=== PATIENT | male | born 1960 | race Caucasian/White ===

== ENCOUNTER 2018-09-18 10:22 | Day surgery (SDC) | payer OTHER, SELFPAY ==
--- NOTE | 2018-09-18 | PATH_ITS ---
[facility] Accession Number: [id number] . 01 Material submitted: . POLYP @ ANAL VERGE . 02 Diagnosis: Polyp at Anal Verge, Biopsy: Hyperplastic polyp. [facility]/09/21/2018 . 02 Electronically signed: . Felipe Fitzpatrick MD, PhD, Pathologist NPI- [id number] . 01 Gross description: . POLYP @ ANAL VERGE: Received in formalin are multiple fragment(s) of mitchell, soft tissue measuring 0.7 x 0.4 x 0.3 cm in aggregate submitted entirely in 1 cassette(s) /CKI /CKI . 02 Pathologist provided ICD-10: K62.1 . 02 CPT . 082633 Specimen Comment: A duplicate report has been generated due to demographic updates. Performed at: 01 [facility] [address] [place] [address], [place], [place] [id number] MD Floyd Alas MD Phone: [phone] [facility]formed at: [facility] [address] [place], [place] [id number] MD Danna Laura MD Phone: [phone]
[2018-09-18 10:49] VITALS: BP 151/108; PULSE 65; RESP 16; TEMP 36.8; O2SAT 98; BMI 35.6
[2018-09-18] MEDS: SODIUM CHLORIDE 0.9% 1,000 ML 200 ML IV (11:10)
[2018-09-18] MEDS: MIDAZOLAM 5 MG/5 ML VIAL IV (11:20)
[2018-09-18] MEDS: fentaNYL 250 MCG/5 ML INJ IV (11:20)
--- NOTE | 2018-09-18 11:41 | PM.HP.1 ---
History of Present Illness Date Patient Seen: 09/18/18 Time Patient Seen: 11:34 Chief complaint: flex sig possible hem banding [id number] Narrative: Patient is a gentleman here for flex sig to evaluate colonic leakage. He states that the Kugel exercises I recommended have helped tremendously probably 95% improvement he said. Patient History Medical History PTSD (post-traumatic stress disorder) (Chronic) Surgical History H/O colonoscopy (Resolved ~2011) History of appendectomy (Resolved ~1977) History of appendectomy (Resolved) Family & Social History Family History: Reviewed 09/18/18 by Gunnar Velásquez MD Social History: household members spouse Tobacco & Substance use: Smoking Status Current every day smoker alcohol intake never Meds Home Medications Medication Instructions Recorded Confirmed Type alprazolam 1 mg tablet 1 mg PO .twice per week tab 07/29/18 09/18/18 History aspirin 81 mg chewable tablet 81 mg PO DAILY 07/29/18 09/18/18 History atorvastatin PO DAILY 07/29/18 07/29/18 History hydrocodone 7.5 mg-acetaminophen 1 tab PO Q4H PRN 07/29/18 07/29/18 History 325 mg tablet hydrocortisone acetate 1 % rectal % TOP 07/29/18 07/29/18 History cream lactobacillus combination no.8 PO 07/29/18 07/29/18 History metoprolol tartrate PO 07/29/18 07/29/18 History multivitamin tablet 1 tab PO DAILY 07/29/18 07/29/18 History omeprazole PO 07/29/18 07/29/18 History oxycodone-acetaminophen 5 mg-325 1 tab PO Q4-6H PRN 07/29/18 07/29/18 History mg tablet Allergies Allergy/AdvReac Type Severity Reaction Status Date / Time No Known Drug Allergies Allergy Unverified 07/29/18 11:01 Review of Systems Review of Systems All systems reviewed & are unremarkable except as noted in HPI and below Exam Vital Signs (past 8 hours): - 09/18/18 10:49 Temperature 98.2 F Pulse Rate 65 Respiratory Rate 16 Blood Pressure 151/108 H Pulse Oximetry 98 Oxygen Delivery Method Room Air Narrative Exam Narrative: Co Operative no apparent distress. Lungs are clear to auscultation no rales or rhonchi heart regular rate and rhythm no murmur gallop. Abdomen is protuberant soft nontender without mass. Assessment & Plan Plan: Assessment/Plan Narrative: Will proceed to flex sig and possible banding. I have discussed procedures and rationale with the. All questions were answered. Risks of bleeding infection discussed.
--- NOTE | 2018-09-18 11:43 | PM.PREOP ---
Pre-operative Note Interval Note Pre-op Check: Yes History & Physical exam performed today by Physician Changes: No ASA Class (for procedural sedation): II
--- NOTE | 2018-09-18 11:59 | PM.OP.ENDO ---
Operative Date/Time/Diagnoses Date of procedure: 09/18/18 Time of procedure: 11:59 Pre-op diagnosis: Fecal incontinence Post-op diagnosis: same (Diverticulosis sigmoid colon. Small hemorrhoids right at the anal verge. Not amenable to banding.) Procedure & Clinicians Study performed: Flexible sigmoidoscopy with cold biopsy Same procedure as scheduled: Yes Indications: Evaluation of causes of incontinence Surgeon: Gunnar Velásquez Procedure Notes SCOAP/Timeout: Performed Procedure in detail: The patient is placed in left lateral decubitus position underwent IV sedation directed by the surgeon consisting of fentanyl Versed. Digital exam was unremarkable. Marked improvement in his sphincter tone. The scope was inserted advanced through the rectum into the sigmoid. I reached formed stool at 40 cm and had to stop. The scope was gradually brought out. I noted 1 diverticuli and I on retroflex and there were 2 small polyp like lesions near the anal verge which I biopsied and removed. I really did not see anything but some small hemorrhoids right at the anal verge which would not be amenable to banding. As patient has markedly improved symptom- tom I did not proceed with any banding procedure. Findings: diverticulosis and internal hemorrhoids (Very small) Specimen(s): other (Two polyps at anal verge) Complications: none Follow up: as needed Disposition: PACU
[2018-09-18 12:08] VITALS: BP 163/95; PULSE 61; RESP 16; TEMP 36.6; O2SAT 93
[2018-09-18 12:12] VITALS: BP 151/88; PULSE 77; TEMP 36.4; O2SAT 95
== END 2018-09-18 12:24 | disposition home or self-care (01) ==
PROVIDERS: Family Provider Family Medicine; PCP Family Medicine; Visit Provider Specialist
PROC: 0DJD8ZZ Inspection of Lower Intestinal Tract, Via Natural or Artificial Opening Endoscopic (ICD-10-PCS; CPT 45378; principal; 2018-09-18 11:45)
DX: R15.9 Full incontinence of feces (principal); K57.30 Diverticulosis of large intestine without perforation or abscess without bleeding; K64.8 Other hemorrhoids; K62.1 Rectal polyp; F17.210 Nicotine dependence, cigarettes, uncomplicated; F43.10 Post-traumatic stress disorder, unspecified
CPT/HCPCS: 45331; 99152; J2250; J3010

== ENCOUNTER → 2022-09-02 10:55 | Outpatient (CLI) | payer OTHER, SELFPAY ==
[2022-09-02 14:33] LABS: COVID19 -Nasal RAPID Negative (Negative)
== END ==
PROVIDERS: Family Provider Family Medicine; PCP Family Medicine; Visit Provider Surgery
DX: Z20.822 Contact with and (suspected) exposure to COVID-19 (principal); Z01.812 Encounter for preprocedural laboratory examination
CPT/HCPCS: 87635; C9803

== ENCOUNTER 2022-09-03 09:40 | Day surgery (SDC) | payer OTHER, SELFPAY ==
[2022-09-03] MEDS: SODIUM CHLORIDE 0.9% 1,000 ML 150 ML IV (09:53)
[2022-09-03 10:05] VITALS: BP 151/97; PULSE 65; RESP 16; TEMP 36.3; O2SAT 98
--- NOTE | 2022-09-03 10:55 | P.HP_ITS ---
History of Present Illness History of Present Illness Date Patient Seen: 09/03/22 Time Patient Seen: 10:55 Chief complaint: SDC Narrative: The patient presents for colorectal screening he had a flexible sigmoidoscopy with polypectomy 2017. No personal or family history of colon cancer. On further history denies any recent gastrointestinal symptoms. No nausea, vomiting, abdominal pain, loss of appetite, unexplained weight loss, change in bowel habits. History of uncomplicated diverticulitis. Patient History Medical History PTSD (post-traumatic stress disorder) Surgical History H/O colonoscopy (~2011) History of appendectomy (~1977) History of appendectomy Family & Social History Family History Father Diabetes mellitus Mother Lung cancer Social History: household members spouse Tobacco & Substance use: Smoking Status Former smoker alcohol intake never Substance Use Type does not use Meds Home Medications and Allergies Home Medications Medication Instructions Recorded Confirmed Type alprazolam 1 mg tablet (Xanax) 1 mg PO .twice per week 07/29/18 09/18/18 History aspirin 81 mg chewable tablet 81 mg PO DAILY 07/29/18 09/18/18 History atorvastatin PO DAILY 07/29/18 07/29/18 History hydrocodone 7.5 mg-acetaminophen 1 tab PO Q4H PRN pain 07/29/18 07/29/18 History 325 mg tablet hydrocortisone acetate 1 % rectal % topical 07/29/18 07/29/18 History cream lactobacillus combination no.8 PO 07/29/18 07/29/18 History [Adult Probiotic] metoprolol tartrate PO 07/29/18 07/29/18 History multivitamin 1 tab PO DAILY 07/29/18 07/29/18 History omeprazole [Prilosec] PO 07/29/18 07/29/18 History oxycodone-acetaminophen 5 mg-325 1 tab PO Q4-6H PRN Pain (Scale 07/29/18 07/29/18 History mg tablet Score 1-3) sodium,potassium,mag sulfates 17.5 See Rx Instructions PO .COMPLEX 07/17/22 Rx gram-3.13 gram-1.6 gram oral soln #354 mL (Suprep Bowel Prep Kit) Allergies Allergy/AdvReac Type Severity Reaction Status Date / Time adhesive tape Allergy Mild Rash Verified 09/03/22 09:58 Exam Vital Signs (past 8 hours): - 09/03/22 10:05 Temperature 97.3 F L Pulse Rate 65 Respiratory Rate 16 Blood Pressure 151/97 H Pulse Oximetry 98 Oxygen Delivery Method Room Air Oxygen Delivery Method Room Air Narrative Exam Narrative: General adult male alert oriented no acute distress Chest nonlabored respiration Extremities warm well perfused Assessment & Plan Assessment & Plan narrative: The patient requires colorectal screening and colonoscopy is recommended. Technical details were discussed. Risks, benefits, alternatives explained. Risks including but not limited to myocardial infarction, aspiration, bleeding, pain, missed lesion, incomplete examination, need for further radiographic studies, colonic perforation, and need for major abdominal surgery were discussed. All questions were answered to their satisfaction, and they are in agreement with this plan. Time Spent With Patient Critical Care time: I spent a total of [] minutes of critical care time on this patient's care today ; this time is exclusive of procedural time.
--- NOTE | 2022-09-03 10:57 | PM.OP.COLON ---
Operative Date/Time/Diagnoses Date of procedure: 09/03/22 Time of procedure: 10:57 Pre-op diagnosis: Personal history of colonic polyps Post-op diagnosis: same Procedure & Clinicians Study performed: Colonoscopy Same procedure as scheduled: Yes Indications: Personal history of colonic polyps Surgeon: Christopher Del Angel Procedure Notes Procedure in detail: Medications: Conscious sedation using 10mg IV midazolam and 200mcg IV of fentanyl The history and physical was performed/updated and the patient is ASA class is 2. The procedure was discussed in detail with the patient. Potential risks complications including infection, bleeding, missed diagnosis, perforation, need for surgery, and were explained. Their questions were answered and informed consent was obtained. Patient was brought to the procedure room and placed standard monitoring equipment. The patient's vital signs were monitored continuously throughout the entire procedure. Prior to starting time-out was performed. The patient was placed in the left lateral recumbent position. Procedural sedation was administered. Examination began with a thorough inspection of the perianal area there was no evidence of fissures, fistulae, external hemorrhoids or cutaneous malignancy. The colonoscopy scope was then placed into the anal canal and was advanced to the cecum, which was identified by the ileocecal valve, the appendiceal orifice and the confluence of the taenia. The scope was then slowly withdrawn examining colon thoroughly in all directions, irrigating it of any residual stool. FINDINGS 1. No masses or polyps 2. Sigmoid diverticulosis moderate The patient tolerated the procedure well. They will be discharged once criteria are met. The prep was of good/excellent quality. The withdrawl time was 8 minutes. The sedation time was 23 minutes. Specimen(s): none sent Complications: none Impression: Normal colonoscopy Post-procedure Recommendations: Colonoscopy in 10 years and High fiber diet Disposition: same day surgery
[2022-09-03 11:06] VITALS: BMI 36.8
[2022-09-03] MEDS: MIDAZOLAM 5 MG/5 ML VIAL 10 MG IV (11:10)
[2022-09-03] MEDS: fentaNYL 100 MCG/2 ML INJ 200 MCG IV (11:17)
[2022-09-03 11:32] VITALS: BP 114/81; PULSE 63; RESP 16; TEMP 36.8; O2SAT 95
[2022-09-03 11:37] VITALS: BP 123/88; PULSE 65; RESP 16; O2SAT 95
[2022-09-03 11:42] VITALS: BP 115/82; PULSE 61; RESP 18; O2SAT 94
[2022-09-03 11:47] VITALS: BP 124/86; PULSE 60; RESP 14; TEMP 36.6; O2SAT 93
[2022-09-03 11:49] VITALS: BP 120/89; PULSE 61; RESP 18; TEMP 36.7; O2SAT 94
== END 2022-09-03 12:08 | disposition home or self-care (01) ==
PROVIDERS: Family Provider Family Medicine; PCP Family Medicine; Referring Provider Surgery; Visit Provider Surgery
PROC: 0DJD8ZZ Inspection of Lower Intestinal Tract, Via Natural or Artificial Opening Endoscopic (ICD-10-PCS; CPT 45378; principal; 2022-09-03 10:45)
DX: Z12.11 Encounter for screening for malignant neoplasm of colon (principal); Z86.010 Personal history of colon polyps; K57.30 Diverticulosis of large intestine without perforation or abscess without bleeding
CPT/HCPCS: 45378; 99152; J2250; J3010

== ENCOUNTER → 2022-09-17 13:06 | Outpatient (CLI) | payer OTHER, SELFPAY | PROVIDERS: Family Provider Family Medicine; PCP Family Medicine; Referring Provider Family Medicine; Visit Provider Family Medicine | DX: M25.511 Pain in right shoulder (principal); Z53.20 Procedure and treatment not carried out because of patient's decision for unspecified reasons ==

== ENCOUNTER → 2025-01-17 14:12 | Outpatient (CLI) | payer OTHER, SELFPAY ==
--- NOTE | 2025-01-17 14:14 | DI.RAD.S_ITS ---
PROCEDURE: XR CHEST 2V INDICATIONS: Cough, unspecified TECHNIQUE: 2 views of the chest were acquired. COMPARISON: None. FINDINGS: Heart, mediastinum and pulmonary vascular: Heart is normal in size and configuration. Mediastinum is unremarkable. Pulmonary vascular is normal. Lungs: Clear Pleural spaces: Normal-no effusions or pneumothorax. There is mild elevation of the left diaphragm Bones and soft tissues: Normal IMPRESSION: No acute cardiopulmonary disease. Mild elevation left diaphragm is likely chronic Dictated by: Haja Soto M.D. on 01/18/2025 at 9:42 Approved by: Haja Soto M.D. on 01/18/2025 at 9:43
== END ==
LOC: RAD 14:13
PROVIDERS: Family Provider Family Medicine; PCP Family Medicine; Referring Provider Family Medicine; Visit Provider Family Medicine
DX: R05.1 Acute cough (principal)
CPT/HCPCS: 0241U; 71046

== ENCOUNTER → 2025-01-17 15:07 | Outpatient (ROUT) | payer OTHER, SELFPAY ==
[2025-01-17 15:52] LABS: Influenza A - CEPHEID Flu A NEGATIVE (NEGATIVE); Influenza B - CEPHEID Flu B NEGATIVE (NEGATIVE); Respiratory Syncytial Virus POSITIVE (Negative)
[2025-01-17 16:00] LABS: COVID-19 CEPHEID 4-PLEX PCR Negative (Negative)
== END ==
PROVIDERS: Family Provider Family Medicine; PCP Family Medicine; Visit Provider Family Medicine
DX: R05.1 Acute cough (principal)
CPT/HCPCS: 0241U

== ENCOUNTER → 2025-04-27 12:14 | Outpatient (CLI) | payer OTHER, SELFPAY ==
--- NOTE | 2025-04-27 12:15 | DI.ECHO.S_ITS ---
[facility] : : [address] : : [place] : : [id number] : : Phone: [phone] Echocardiogram Report + + :Name: DHARA VARGAS JR Study Date: 04/27/2025 Height: 80 in : :[facility] ReadingLocation: Weight: 311 lb : : Gender: Male BSA: 2.8 m2 : :: 1960 Age: 64 yrs BP: 143/105 mmHg: :Reason For Study: CARDIAC ARRHYTHMIA : :Ordering Physician: KADY CHINO Performed By: True Alvarez : :Referring: KADY CHINO : + + Interpretation Summary 1. The left ventricular contractility is normal. Estimated ejection fraction is greater than 55% with no segmental wall motion abnormalities. Mild concentric LVH. Normal diastolic function. 2. The right ventricular contractility is normal. 3. Borderline right ventricular enlargement. All other cardiac chambers are normal size. 4. No significant valvular abnormalities. 5. No obvious intracardiac shunt. 6. No obvious intracardiac masses nor thrombi. 7. No hemodynamically significant pericardial effusion. Conclusion: Normal biventricular function with mild concentric left ventricular hypertrophy and no significant valvular abnormalities. Procedure: A two-dimensional transthoracic echocardiogram with color flow and Doppler was performed. The study quality was technically good. There is no prior echocardiogram noted for this patient. The patient was in normal sinus rhythm during the exam. Left Ventricle: The left ventricle is normal in size. Left ventricular wall thickness is mildly increased. There is no ventricular septal defect visualized. The ejection fraction is estimated to be 55-60%. There are no focal wall motion abnormalities. Diastolic parameters suggest probable normal left ventricular diastolic function and normal filling pressures. Right Ventricle: The right ventricle is mildly dilated. The right ventricular systolic function is normal. Atria: The left atrial size is normal. Right atrial size is normal. There is no Doppler evidence for an interatrial shunt. Mitral Valve: The mitral valve leaflets appear mildly thickened, but open well. There is no mitral regurgitation noted. Aortic Valve: The aortic valve is trileaflet. The aortic valve opens well. No aortic regurgitation is present. Tricuspid Valve: The tricuspid valve leaflets are thin and pliable. No tricuspid regurgitation. Pulmonic Valve: The pulmonic valve is normal in structure and function. There is no pulmonic valvular regurgitation. Great Vessels: The aortic root is normal size. The ascending aorta is at the upper limits of normal in size. The pulmonary artery is normal size. The inferior vena cava was not visualized. Pericardium/ Pleura There is no pericardial effusion. There is no pleural effusion. MMode/2D Measurements & Calculations LVIDd: 5.0 cm LVOT diam: 2.6 cm LVIDs: 3.5 cm Ao root diam: 4.0 cm FS: 29.7 % asc Aorta Diam: 3.8 cm EPSS: 1.3 cm Ao Arch Diam (Prox Trans): 2.2 cm IVSd: 1.2 cm LVPWd: 1.1 cm LV leone. diameter/BSA (cm/m^2): 1.8 LV sys. diameter/BSA (cm/m^2): 1.3 LA A2 area: 25.2 cm2 RA long axis: 5.9 cm LA A4 area: 23.9 cm2 RA area: 19.0 cm2 LA length (vol): 6.7 cm RA vol: 52.0 ml LA vol: 76.2 ml RA : 18.7 ml/m2 LA vol index: 27.5 ml/m2 IVC diam: 1.6 cm RVD1 (basal): 4.1 cm RVD2 (mid): 3.4 cm TAPSE: 3.2 cm Doppler Measurements & Calculations Ao V2 max: 130.7 cm/sec LVOT Max Bi: 113.1 cm/sec Ao V2 mean: 85.3 cm/sec LV V1 max P.1 mmHg Ao max P.8 mmHg LV V1 VTI: 24.3 cm Ao mean P.3 mmHg DIANA(I,D): 5.0 cm2 Ao V2 VTI: 26.6 cm DIANA(V,D): 4.7 cm2 sev ratio: 0.91 DIANA indexed to BSA (cm^2/m^2): 1.8 MV E max bi: 68.8 cm/sec PA V2 max: 107.9 cm/sec MV A max bi: 63.4 cm/sec PA V2 mean: 77.0 cm/sec MV E/A: 1.1 PA mean P.6 mmHg Med Peak E' Bi: 7.0 cm/sec PA pr(Accel): 36.2 mmHg E/E' med: 9.8 Lat Peak E' Bi: 10.1 cm/sec E/E' lat: 6.8 E/e' average: 8.3 MV dec time: 0.24 sec SV(LVOT): 131.8 ml Reading Physician:YOLI
== END ==
PROVIDERS: Family Provider Family Medicine; PCP Family Medicine; Referring Provider Internal Medicine; Visit Provider Internal Medicine
DX: I49.9 Cardiac arrhythmia, unspecified (principal)
CPT/HCPCS: 93306